=== PATIENT | male | born 2000 | race Hispanic/Latino ===

== ENCOUNTER → 2020-09-06 | Emergency (ER) | payer OTHER ==
[~2020-09-06] VITALS: Ht 182.9 cm; Wt 147.4 kg
[2020-09-06 18:12] VITALS: BP 134/72
== END | disposition home or self-care (01) ==
LOC: ER 20:46
DX: S93.401A Sprain of unspecified ligament of right ankle, initial encounter (principal); X50.1XXA Overexertion from prolonged static or awkward postures, initial encounter; Y93.01 Activity, walking, marching and hiking
CPT/HCPCS: 99283